=== PATIENT | male | born 1990 | race Caucasian/White ===

== ENCOUNTER 2016-09-19 19:18 | Emergency (ER) | payer MEDICAID ==
[~2016-09-19] VITALS: Ht 167.6 cm; Wt 78.8 kg
[~2016-09-19 19:18] MED LIST: BUSP5TAB2 PO; HYDR10TA4 PO; OLAN1CAP16 PO; RISP0.2518 PO
[2016-09-19 19:22] VITALS: BP 106/63
[2016-09-19] MEDS ORDERED: DIPH,PERTUSS(ACELL),TET VAC/PF 0.5 ML IM-VACC ONE ×3 (20:00→20:36)
[2016-09-19] MEDS ORDERED: L.E.T SOLUTION TP ONE (20:00)
[2016-09-19] MEDS ORDERED: LIDOCAINE 1%, 20ML ONE (20:00)
[2016-09-19] MEDS ORDERED: ACETAMINOPHEN 500 MG TABLET PO ONE (20:30)
[2016-09-19] MEDS ORDERED: ACETAMINOPHEN 500 MG TABLET ONE (20:35)
== END 2016-09-19 21:26 | disposition home or self-care (01) ==
LOC: ED 21:20
DX: S01.01XA Laceration without foreign body of scalp, initial encounter (principal); G43.909 Migraine, unspecified, not intractable, without status migrainosus; W01.198A Fall on same level from slipping, tripping and stumbling with subsequent striking against other object, initial encounter; Y93.89 Activity, other specified; Y92.410 Unspecified street and highway as the place of occurrence of the external cause; Y99.8 Other external cause status
CPT/HCPCS: 12013; 70450; 90471; 90715

== ENCOUNTER 2018-04-03 02:59 | Emergency (ER) | payer MEDICAID ==
[~2018-04-03] VITALS: Ht 167.6 cm; Wt 84.7 kg
[2018-04-03] MEDS ORDERED: ONDANSETRON ODT 4 MG PO ONE (03:30)
[2018-04-03] MEDS ORDERED: ACETAMINOPHEN 325 MG TABLET PO ONE (03:30)
[2018-04-03] MEDS ORDERED: ONDANSETRON ODT 4 MG ONE (03:36)
[2018-04-03] MEDS ORDERED: ACETAMINOPHEN 325 MG TABLET ONE (03:37)
[2018-04-03 03:46] LABS: RAPID INFLUENZA A Negative (Negative); RAPID INFLUENZA B Negative (Negative)
[2018-04-03 04:27] VITALS: BP 103/72
== END 2018-04-03 04:32 | disposition home or self-care (01) ==
LOC: ED 03:21
DX: B34.9 Viral infection, unspecified (principal); F31.9 Bipolar disorder, unspecified; F17.200 Nicotine dependence, unspecified, uncomplicated; Z21 Asymptomatic human immunodeficiency virus [HIV] infection status
CPT/HCPCS: 71046; 87081; 87400; 87880; 99285; Q0162; 99283

== ENCOUNTER 2018-04-07 14:15 | Emergency (ER) | payer MEDICAID ==
[~2018-04-07] VITALS: Ht 167.6 cm; Wt 84.5 kg
[2018-04-07] MEDS ORDERED: ONDANSETRON 2MG/ML, 2ML IVPush ONE (15:00)
[2018-04-07] MEDS ORDERED: SODIUM CHLORIDE 0.9% 1,000ML IVBOLUS ONE (15:00)
[2018-04-07] MEDS ORDERED: FAMOTIDINE 20 MG/2 ML IVP ONE (15:00)
[2018-04-07 15:20] LABS: BASOPHILS # (AUTO) 0.01 x10^3/uL (0-0.1); BASOPHILS % (AUTO) 0 % (0-1); EOSINOPHILS # (AUTO) 0.22 x10^3/uL (0-0.4); EOSINOPHILS % (AUTO) 6 % (1-7); LYMPHOCYTES # (AUTO) 1.43 x10^3/uL (1-3.4); LYMPHOCYTES % (AUTO) 40 % (22-44); MD NO; MEAN CORPUSCULAR HEMOGLOBIN 30.5 pg (27.5-34.5); MEAN CORPUSCULAR HGB CONC 34.6 g/dL (33.2-36.2); MEAN CORPUSCULAR VOLUME 88.1 fL (81-97); MEAN PLATELET VOLUME 9.4 fL (7.4-10.4); MONOCYTES # (AUTO) 0.28 x10^3/uL (0.2-0.8); MONOCYTES % (AUTO) 8 % (2-9); NEUTROPHILS # (AUTO) 1.63 x10^3/uL (1.8-6.8); NEUTROPHILS % (AUTO) 46 % (42-75); PLATELET COUNT 161 x10^3/uL (130-400); RED BLOOD COUNT 5.02 x10^6/uL (4.38-5.82); RED CELL DISTRIBUTION WIDTH 14.2 % (9.4-14.8)
[2018-04-07 15:27] LABS: ALANINE AMINOTRANSFERASE 213 U/L (12-78); ALBUMIN 4.1 g/dL (3.4-5.0); ANION GAP 12 mmol/L (5-15); CALCIUM 8.9 mg/dL (8.5-10.1); CHLORIDE 94 mmol/L (98-107); CREATININE 0.93 mg/dL (0.7-1.3)
[2018-04-07 15:29] LABS: ALKALINE PHOSPHATASE 112 U/L (45-117); BILIRUBIN,TOTAL 0.9 mg/dL (0.2-1.0); TOTAL PROTEIN 8.2 g/dL (6.4-8.2)
[2018-04-07] MEDS ORDERED: FAMOTIDINE 20 MG/2 ML ONE (15:30)
[2018-04-07] MEDS ORDERED: ONDANSETRON 2MG/ML, 2ML ONE (15:30)
[2018-04-07] MEDS ORDERED: POTASSIUM CHLORIDE 20 MEQ in SODIUM CHLORIDE 0.9% 250 ML IV ONE (16:00)
[2018-04-07] MEDS ORDERED: DICYCLOMINE 20 MG TABLET PO ONE (17:00)
[2018-04-07] MEDS ORDERED: KETOROLAC 30 MG/1 ML IVPush ONE (17:00)
[2018-04-07] MEDS ORDERED: KETOROLAC 30 MG/1 ML ONE (17:06)
[2018-04-07] MEDS ORDERED: DICYCLOMINE 20 MG TABLET ONE (17:06)
[2018-04-07 17:18] LABS: CLOSTRIDIUM DIFFICILE ANTIGEN NEGATIVE; CLOSTRIDIUM DIFFICILE TOXIN NEGATIVE (Negative)
[2018-04-07] MEDS ORDERED: POTASSIUM CHLORIDE 20 MEQ TAB.ER.PRT PO ONE (17:30)
[2018-04-07] MEDS ORDERED: POTASSIUM CHLORIDE 20 MEQ TAB.ER.PRT ONE (17:30)
[2018-04-07 18:08] VITALS: BP 93/55
== END 2018-04-07 18:11 | disposition home or self-care (01) ==
LOC: ED 18:10
DX: E87.6 Hypokalemia (principal); R11.2 Nausea with vomiting, unspecified; R19.7 Diarrhea, unspecified; Z21 Asymptomatic human immunodeficiency virus [HIV] infection status; G43.909 Migraine, unspecified, not intractable, without status migrainosus; F17.200 Nicotine dependence, unspecified, uncomplicated; F31.9 Bipolar disorder, unspecified
CPT/HCPCS: 36415; 80053; 85025; 87324; 96365; 96366; 96375; 99285; J1885; J2405; J3480; J3490; J7030; J7050

== ENCOUNTER 2018-05-03 03:49 | Emergency (ER) | payer MEDICAID ==
[~2018-05-03] VITALS: Ht 167.6 cm; Wt 82.2 kg
[2018-05-03 03:52] VITALS: BP 114/74
[2018-05-03] MEDS ORDERED: INDOMETHACIN 50 MG CAPSULE ONE (04:16)
[2018-05-03] MEDS ORDERED: INDOMETHACIN 50 MG CAPSULE PO ONE (04:30)
== END 2018-05-03 05:14 | disposition home or self-care (01) ==
LOC: ED 04:06
DX: M10.071 Idiopathic gout, right ankle and foot (principal); M79.671 Pain in right foot
CPT/HCPCS: 36415; 84550; 99284

== ENCOUNTER 2018-07-29 14:54 | Emergency (ER) | payer MEDICAID ==
[~2018-07-29] VITALS: Ht 167.6 cm; Wt 78.2 kg
[2018-07-29 15:00] VITALS: BP 109/66
--- NOTE | 2018-07-29 15:47 | NUR ---
Discharge instructions discussed with patient including when to return to emergency department, patient verbalizes understanding. Patient ambulates with steady gait to discharge desk in no acute distress.
== END 2018-07-29 15:51 | disposition home or self-care (01) ==
LOC: ED 15:26
DX: J02.9 Acute pharyngitis, unspecified (principal); J04.0 Acute laryngitis; F15.10 Other stimulant abuse, uncomplicated; F31.9 Bipolar disorder, unspecified; F17.200 Nicotine dependence, unspecified, uncomplicated; Z21 Asymptomatic human immunodeficiency virus [HIV] infection status
CPT/HCPCS: 71046; 87081; 87880; 99284

== ENCOUNTER 2019-03-14 21:02 | Emergency (ER) | payer MEDICAID ==
[~2019-03-14] VITALS: Ht 165.1 cm; Wt 76.4 kg
[2019-03-14] MEDS ORDERED: L.E.T SOLUTION TP ONE ×2 (22:03→22:30)
[2019-03-14 22:10] VITALS: BP 132/74
== END 2019-03-14 22:13 | disposition home or self-care (01) ==
LOC: ED 22:05
DX: K64.8 Other hemorrhoids (principal); N41.0 Acute prostatitis; G43.909 Migraine, unspecified, not intractable, without status migrainosus
CPT/HCPCS: 99283